=== PATIENT | female | born 1970 | race Hispanic/Latino ===

== ENCOUNTER 2018-09-26 22:00 | Observation (INO) | payer OTHER ==
[2018-09-26] MEDS ORDERED: ASPIRIN PO ONE (22:10)
--- NOTE | 2018-09-26 22:21 | Emergency Department Report ---
ED Chest Pain HPI - General Chief Complaint: Chest Pain Stated Complaint: CHEST PAIN Time Seen by Provider: 09/26/18 22:21 Source: patient, EMS Mode of arrival: Stretcher Limitations: No Limitations - History of Present Illness Initial Comments: Patient is a 48-year-old female that presents emergency room with complaints of chest pain, shortness of breath and diaphoresis. Patient states her chest pain started one hour ago. Patient was brought in by EMS. Patient states chest pain is 10 out of 10. Patient states chest pain to her left shoulder. Patient also complains of shortness of breath and diaphoresis. Patient states her symptoms are better with rest and worse with exertion. MD Complaint: chest pain -: Sudden Onset: during rest Pain Location: substernal, left chest Pain Radiation: LUE Severity: severe Severity scale (0 -10): 10 Quality: sharp Consistency: constant Improves With: rest Worsens With: exertion re: diaphoresis, dyspnea, sense of impending doom. denies: nausea, vomting Other Symptoms: denies: cough, fever, syncope, rash, acid taste in mouth, leg swelling, palpitations, burping Treatments Prior to Arrival: none Aspirin use within the Past 7 Days: (0) No - Related Data On Oral Contraceptives: No Allergies Allergy/AdvReac Type Severity Reaction Status Date / Time No Known Allergies Allergy Verified 09/26/18 22:24 Heart Score - HEART Score History: Moderately suspicious EKG: Non-specific Age: 45-65 Risk factors: No known risk factors Troponin: < normal limit HEART Score: 3 ED Review of Systems ROS: Stated complaint: CHEST PAIN Other details as noted in HPI Constitutional: denies: chills, fever Eyes: denies: eye pain, eye discharge, vision change ENT: denies: ear pain, throat pain Respiratory: shortness of breath. denies: cough, wheezing Cardiovascular: chest pain. denies: palpitations Endocrine: no symptoms reported Gastrointestinal: denies: abdominal pain, nausea, diarrhea Genitourinary: denies: urgency, dysuria, discharge Musculoskeletal: denies: back pain, joint swelling, arthralgia Skin: denies: rash, lesions Neurological: denies: headache, weakness, paresthesias Psychiatric: denies: anxiety, depression Hematological/Lymphatic: denies: easy bleeding, easy bruising ED Past Medical Hx - Past Medical History Previous Medical History?: Yes Additional medical history: Hypothyroidism - Surgical History Past Surgical History?: No - Family History Family history: no significant - Social History Smoking Status: Never Smoker Substance Use Type: None ED Physical Exam - General Limitations: No Limitations General appearance: alert, in distress - Head Head exam: Present: atraumatic, normocephalic - Eye Eye exam: Present: normal appearance - ENT ENT exam: Present: mucous membranes moist - Neck Neck exam: Present: normal inspection - Respiratory Respiratory exam: Present: normal lung sounds bilaterally. Absent: respiratory distress, wheezes - Cardiovascular Cardiovascular Exam: Present: regular rate, normal rhythm. Absent: systolic murmur, diastolic murmur, rubs, gallop - GI/Abdominal GI/Abdominal exam: Present: soft, normal bowel sounds - Rectal Rectal exam: Present: deferred - Extremities Exam Extremities exam: Present: normal inspection - Back Exam Back exam: Present: normal inspection - Neurological Exam Neurological exam: Present: alert, oriented X3 - Psychiatric Psychiatric exam: Present: normal affect, normal mood - Skin Skin exam: Present: warm, intact, normal color, diaphoretic. Absent: rash ED Course Vital Signs 09/26/18 09/26/18 09/26/18 22:07 22:09 22:16 Temperature 98.1 F Pulse Rate 77 81 Respiratory 17 18 Rate Blood Pressure 130/78 [Left] O2 Sat by Pulse 97 98 Oximetry 09/26/18 09/27/18 23:10 01:08 Temperature Pulse Rate 75 72 Respiratory 17 15 Rate Blood Pressure 120/84 136/73 [Left] O2 Sat by Pulse 98 99 Oximetry - Reevaluation(s) Reevaluation #1: Initial evaluation done. Patient found to be diaphoretic. Patient complaining of chest pain shortness of breath. 09/26/18 20:21 Patient states her chest pain is improving and her diaphoresis has resolved 09/26/18 22:50 Reevaluation #2: Patient's symptoms have improved. 09/27/18 00:24 Reevaluation #3: Patient is resting in bed comfortably 09/27/18 00:32 - Consultations Consultation #1: Hospitalist consultation for admission. Hospitalist to admit patient. 09/27/18 01:34 JEM score - Jem Score Age > 65: (0) No Aspirin use within the Past 7 Days: (0) No 3 or more CAD Risk Factors: (0) No 2 or more Angina events in past 24 hrs: (1) Yes Known CAD with more than 50% Stenosis: (0) No Elevated Cardiac Markers: (0) No ST Deviation Greater than 0.5mm: (0) No JEM Score: 1 ED Medical Decision Making - Lab Data Result diagrams: 09/26/18 22:28 09/26/18 22:28 - EKG Data -: EKG Interpreted by Me EKG shows normal: sinus rhythm, axis, intervals, QRS complexes, ST-T waves Rate: normal - Radiology Data Radiology results: report reviewed, image reviewed CHEST 1 VIEW 10:13 PM INDICATION / CLINICAL INFORMATION: Chest Pain. COMPARISON: None available. FINDINGS: SUPPORT DEVICES: None. HEART / MEDIASTINUM: The heart size and pulmonary vasculature are normal. The aorta is normal in caliber. LUNGS / PLEURA: No significant pulmonary or pleural abnormality. No pneumothorax. ADDITIONAL FINDINGS: No significant additional findings. IMPRESSION: No acute findings. - Medical Decision Making She is a 48-year-old female that presents complaints of chest pain. Patient's chest pain radiating into her left arm. Patient also complains of shortness of breath and diaphoresis. Patient admitted to the hospitalist service. Patient's initial cardiac workup negative. - Differential Diagnosis ACS. Chest pain. Critical Care Time: Yes Critical care attestation.: If time is entered above; I have spent that time in minutes in the direct care of this critically ill patient, excluding procedure time. Critical Care Time: 35 minutes ED Disposition Clinical Impression: Diaphoresis, SOB (shortness of breath) Chest pain Qualifiers: Chest pain type: unspecified Qualified Code(s): R07.9 - Chest pain, unspecified Disposition: 09 OP ADMIT IP TO THIS HOSP Is pt being admited?: Yes Does the pt Need Aspirin: No Condition: Critical Time of Disposition: 00:34
--- NOTE | 2018-09-26 22:36 | XRay Report ---
CHEST 1 VIEW 10:13 PM INDICATION / CLINICAL INFORMATION: Chest Pain. COMPARISON: None available. FINDINGS: SUPPORT DEVICES: None. HEART / MEDIASTINUM: The heart size and pulmonary vasculature are normal. The aorta is normal in [place]. LUNGS / PLEURA: No significant pulmonary or pleural abnormality. No pneumothorax. ADDITIONAL FINDINGS: No significant additional findings. IMPRESSION: No acute findings. Signer Name: Roman Quijano MD Signed: 09/26/2018 10:31 PM Workstation Name: [id number]
[2018-09-26 22:41] LABS: Basophils % (Auto) 0.7 % (0.0-1.8); Eosinophils # (Auto) 0.5 K/mm3 (0.0-0.4); Eosinophils % (Auto) 9.1 % (0.0-4.3); Hematocrit 37.6 % (30.3-42.9); Hemoglobin 12.8 gm/dl (10.1-14.3); Lymphocytes # (Auto) 1.2 K/mm3 (1.2-5.4); Lymphocytes % (Auto) 20.6 % (13.4-35.0); Mean Corpuscular HGB Conc 34 % (30-34); Mean Corpuscular Volume 88 fl (79-97); Monocytes # (Auto) 0.3 K/mm3 (0.0-0.8); Monocytes % (Auto) 5.2 % (0.0-7.3); Platelet Count 245 K/mm3 (140-440); Red Blood Count 4.28 M/mm3 (3.65-5.03); Red Cell Distribution Width 13.8 % (13.2-15.2)
[2018-09-26 23:03] LABS: BUN/Creatinine Ratio 19; Blood Urea Nitrogen 17 mg/dL (7-17); Calcium 9.6 mg/dL (8.4-10.2); Hemolysis Index 7
[2018-09-27] MEDS ORDERED: MILK OF MAGNESIA PO PRN (02:07)
[2018-09-27] MEDS ORDERED: TYLENOL PO PRN (02:07)
[2018-09-27] MEDS ORDERED: MORPHINE IV PRN (02:07)
[2018-09-27] MEDS ORDERED: SODIUM CHLORIDE FLUSH SYRINGE 10 ML IV PRN ×2 (02:07→02:18)
[2018-09-27] MEDS ORDERED: ZOFRAN IV PRN (02:07)
[2018-09-27 04:05] LABS: Basophils # (Auto) 0.1 K/mm3 (0.0-0.1); Basophils % (Auto) 1.6 % (0.0-1.8); Eosinophils # (Auto) 0.6 K/mm3 (0.0-0.4); Eosinophils % (Auto) 11.4 % (0.0-4.3); Hematocrit 36.7 % (30.3-42.9); Hemoglobin 12.5 gm/dl (10.1-14.3); Lymphocytes # (Auto) 1.6 K/mm3 (1.2-5.4); Lymphocytes % (Auto) 27.9 % (13.4-35.0); Mean Corpuscular HGB Conc 34 % (30-34); Mean Corpuscular Volume 88 fl (79-97); Monocytes # (Auto) 0.3 K/mm3 (0.0-0.8); Monocytes % (Auto) 4.6 % (0.0-7.3); Platelet Count 240 K/mm3 (140-440); Red Blood Count 4.16 M/mm3 (3.65-5.03); Red Cell Distribution Width 13.7 % (13.2-15.2)
[2018-09-27 04:20] LABS: BUN/Creatinine Ratio 19; Blood Urea Nitrogen 15 mg/dL (7-17); Calcium 9.4 mg/dL (8.4-10.2); Chol/HDL Ratio 3.87 %; HDL Cholesterol 40 mg/dL (40-59); Hemolysis Index 70; LDL Cholesterol,Direct 111 mg/dL (50-130)
--- NOTE | 2018-09-27 05:14 | History and Physical Report ---
<COY MONZON - Last Filed: 09/27/18 05:27> History of Present Illness Date of examination: 09/27/18 Date of admission: 09/27/18 02:07 Chief complaint: Chest pain History of present illness: Patient is a 48-year-old female with PMHx of hypothyroidism who presents to the ER with c/o chest pain. Pt states that the chest pain started today around 6pm, the pain is amm pressure-like pain located in the midsternal area, associated with some SOB and diaphoresis. Patient reports a severe chest pressure of an intensity of 10 out of 10. Patient states chest the pain felt like some one punch her in her chest and stay there for a while, the pain also radiates to her left shoulder. Patient admits to similar pain and family history of heart disease, she states that she usually ignore the pain, but states this time she comes to the ER because the pain was concerning and she wanted to find out what's causing it. Pt had an EKG in the ER that was normal, her first CE was normal, pt is admitted to r/o etiology of the chest pain. Past History Past Medical History: hypothyroidism Past Surgical History: No surgical history Social history: no significant social history Family history: CAD Medications and Allergies Allergies Allergy/AdvReac Type Severity Reaction Status Date / Time No Known Allergies Allergy Verified 09/26/18 22:24 Home Medications Medication Instructions Recorded Confirmed Last Taken Type Levothyroxine [Synthroid] 125 mcg PO QAM 09/27/18 09/27/18 2 Weeks Ago History ~09/13/18 Active Meds: Active Medications Acetaminophen (Tylenol) 650 mg PO Q4H PRN PRN Reason: Pain MILD(1-3)/Fever >100.5/PAGAN Atorvastatin Calcium (Lipitor) 40 mg PO QHS KENDY Magnesium Hydroxide (Milk Of Magnesia) 30 ml PO Q4H PRN PRN Reason: Constipation Morphine Sulfate (Morphine) 2 mg IV Q4H PRN PRN Reason: Pain, Moderate (4-6) Ondansetron HCl (Zofran) 4 mg IV Q8H PRN PRN Reason: Nausea And Vomiting Sodium Chloride (Sodium Chloride Flush Syringe 10 Ml) 10 ml IV BID KENDY Sodium Chloride (Sodium Chloride Flush Syringe 10 Ml) 10 ml IV PRN PRN PRN Reason: LINE FLUSH Exam - Constitutional Vitals: Temp Pulse Resp BP Pulse Ox 98.1 F 55 L 16 116/78 99 09/26/18 22:07 09/27/18 04:20 09/27/18 04:20 09/27/18 04:20 09/27/18 04:20 General appearance: Present: no acute distress - EENT Eyes: Present: EOM intact ENT: hearing intact - Neck Neck: Present: normal ROM - Respiratory Respiratory effort: normal Respiratory: bilateral: CTA - Cardiovascular Rhythm: regular Heart Sounds: Present: S1 & S2 - Extremities Extremities: no ischemia, No edema Peripheral Pulses: within normal limits - Abdominal General gastrointestinal: Present: soft, non-tender Female genitourinary: Present: deferred - Rectal Rectal Exam: deferred - Integumentary Integumentary: Present: warm, dry - Musculoskeletal Musculoskeletal: strength equal bilaterally - Psychiatric Psychiatric: cooperative - Neurologic Neurologic: moves all extremities Results - Labs CBC & Chem 7: 09/27/18 03:46 09/27/18 03:46 Labs: Laboratory Last Values WBC 5.6 K/mm3 (4.5-11.0) 09/27/18 03:46 RBC 4.16 M/mm3 (3.65-5.03) 09/27/18 03:46 Hgb 12.5 gm/dl (10.1-14.3) 09/27/18 03:46 Hct 36.7 % (30.3-42.9) 09/27/18 03:46 MCV 88 fl (79-97) 09/27/18 03:46 MCH 30 pg (28-32) 09/27/18 03:46 MCHC 34 % (30-34) 09/27/18 03:46 RDW 13.7 % (13.2-15.2) 09/27/18 03:46 Plt Count 240 K/mm3 (140-440) 09/27/18 03:46 Lymph % (Auto) 27.9 % (13.4-35.0) 09/27/18 03:46 [place] % (Auto) 4.6 % (0.0-7.3) 09/27/18 03:46 Eos % (Auto) 11.4 % (0.0-4.3) H 09/27/18 03:46 Baso % (Auto) 1.6 % (0.0-1.8) 09/27/18 03:46 Lymph # 1.6 K/mm3 (1.2-5.4) 09/27/18 03:46 [place] # 0.3 K/mm3 (0.0-0.8) 09/27/18 03:46 Eos # 0.6 K/mm3 (0.0-0.4) H 09/27/18 03:46 Baso # 0.1 K/mm3 (0.0-0.1) 09/27/18 03:46 Seg Neutrophils % 54.5 % (40.0-70.0) 09/27/18 03:46 Seg Neutrophils # 3.0 K/mm3 (1.8-7.7) 09/27/18 03:46 Sodium 137 mmol/L (137-145) 09/27/18 03:46 Potassium 4.3 mmol/L (3.6-5.0) 09/27/18 03:46 Chloride 103.0 mmol/L (98-107) 09/27/18 03:46 Carbon Dioxide 21 mmol/L (22-30) L 09/27/18 03:46 17 mmol/L 09/27/18 03:46 BUN 15 mg/dL (7-17) 09/27/18 03:46 0.8 mg/dL (0.7-1.2) 09/27/18 03:46 Estimated GFR > 60 ml/min 09/27/18 03:46 19 % 09/27/18 03:46 Glucose 106 mg/dL (65-100) H 09/27/18 03:46 Calcium 9.4 mg/dL (8.4-10.2) 09/27/18 03:46 < 0.010 ng/mL (0.00-0.029) 09/27/18 03:46 Triglycerides 105 mg/dL (2-149) 09/27/18 03:46 Cholesterol 155 mg/dL (50-199) 09/27/18 03:46 111 mg/dL (50-130) 09/27/18 03:46 40 mg/dL (40-59) 09/27/18 03:46 3.87 % 09/27/18 03:46 Assessment and Plan Assessment and plan: 1. Chest pain r/o ACS 2. Hypothyroidism 3. Obesity Plan: Pt is admited to [facility] for chest pain Continue CE q6hr x2 Cardiac diet Stress test in am Monitor VS Start Asa, statin Repeat EKG with chest pain further plan per stress test result in am Advance Directives: Yes VTE prophylaxis?: Mechanical Plan of care discussed with patient/family: Yes <TEODORO PEREZ - Last Filed: 09/27/18 06:25> History of Present Illness Date of admission: 09/27/18 02:07 Medications and Allergies Active Meds: Active Medications Acetaminophen (Tylenol) 650 mg PO Q4H PRN PRN Reason: Pain MILD(1-3)/Fever >100.5/PAGAN Atorvastatin Calcium (Lipitor) 40 mg PO QHS KENDY Magnesium Hydroxide (Milk Of Magnesia) 30 ml PO Q4H PRN PRN Reason: Constipation Morphine Sulfate (Morphine) 2 mg IV Q4H PRN PRN Reason: Pain, Moderate (4-6) Ondansetron HCl (Zofran) 4 mg IV Q8H PRN PRN Reason: Nausea And Vomiting Sodium Chloride (Sodium Chloride Flush Syringe 10 Ml) 10 ml IV BID KENDY Sodium Chloride (Sodium Chloride Flush Syringe 10 Ml) 10 ml IV PRN PRN PRN Reason: LINE FLUSH Exam - Constitutional Vitals: Temp Pulse Resp BP Pulse Ox 97.5 F L 57 L 20 115/60 98 09/27/18 05:48 09/27/18 05:47 09/27/18 05:47 09/27/18 05:47 09/27/18 05:47 Results - Labs CBC & Chem 7: 09/27/18 03:46 09/27/18 03:46 Labs: Laboratory Last Values WBC 5.6 K/mm3 (4.5-11.0) 09/27/18 03:46 RBC 4.16 M/mm3 (3.65-5.03) 09/27/18 03:46 Hgb 12.5 gm/dl (10.1-14.3) 09/27/18 03:46 Hct 36.7 % (30.3-42.9) 09/27/18 03:46 MCV 88 fl (79-97) 09/27/18 03:46 MCH 30 pg (28-32) 09/27/18 03:46 MCHC 34 % (30-34) 09/27/18 03:46 RDW 13.7 % (13.2-15.2) 09/27/18 03:46 Plt Count 240 K/mm3 (140-440) 09/27/18 03:46 Lymph % (Auto) 27.9 % (13.4-35.0) 09/27/18 03:46 [place] % (Auto) 4.6 % (0.0-7.3) 09/27/18 03:46 Eos % (Auto) 11.4 % (0.0-4.3) H 09/27/18 03:46 Baso % (Auto) 1.6 % (0.0-1.8) 09/27/18 03:46 Lymph # 1.6 K/mm3 (1.2-5.4) 09/27/18 03:46 [place] # 0.3 K/mm3 (0.0-0.8) 09/27/18 03:46 Eos # 0.6 K/mm3 (0.0-0.4) H 09/27/18 03:46 Baso # 0.1 K/mm3 (0.0-0.1) 09/27/18 03:46 Seg Neutrophils % 54.5 % (40.0-70.0) 09/27/18 03:46 Seg Neutrophils # 3.0 K/mm3 (1.8-7.7) 09/27/18 03:46 Sodium 137 mmol/L (137-145) 09/27/18 03:46 Potassium 4.3 mmol/L (3.6-5.0) 09/27/18 03:46 Chloride 103.0 mmol/L (98-107) 09/27/18 03:46 Carbon Dioxide 21 mmol/L (22-30) L 09/27/18 03:46 17 mmol/L 09/27/18 03:46 BUN 15 mg/dL (7-17) 09/27/18 03:46 0.8 mg/dL (0.7-1.2) 09/27/18 03:46 Estimated GFR > 60 ml/min 09/27/18 03:46 19 % 09/27/18 03:46 Glucose 106 mg/dL (65-100) H 09/27/18 03:46 Calcium 9.4 mg/dL (8.4-10.2) 09/27/18 03:46 < 0.010 ng/mL (0.00-0.029) 09/27/18 03:46 Triglycerides 105 mg/dL (2-149) 09/27/18 03:46 Cholesterol 155 mg/dL (50-199) 09/27/18 03:46 111 mg/dL (50-130) 09/27/18 03:46 40 mg/dL (40-59) 09/27/18 03:46 3.87 % 09/27/18 03:46 Assessment and Plan Assessment and plan: I personally discussed the patient with the BENJAMIN, Coy Monzon. I agree with the above assessment and plan.
[2018-09-27] MEDS ORDERED: LEXISCAN IV ONE ×2 (06:50→06:57)
[2018-09-27] MEDS ORDERED: SODIUM CHLORIDE FLUSH SYRINGE 10 ML IV SCH (10:00)
--- NOTE | 2018-09-27 11:01 | Discharge Summary ---
Providers - Providers Date of Admission: 09/27/18 02:07 Date of discharge: 09/27/18 Attending physician: ANATOLIY GOMEZ 09/27/18 Consult to Cardiac Rehabilitation [CONS] Routine Reason For Exam: Phase I [facility] Reason for admission: cp Condition: Critical Hospital course: Patient is a 48-year-old female with PMHx of hypothyroidism who presents to the ER with c/o chest pain. The patient described the pain as substernal pressure and quality with intermittent radiation to the left arm and shoulder. However, upon my exam and further history, the patient reports reproducible pain with palpation of the anterior chest wall with pinpoint tenderness. Patient denies any nausea vomiting or diaphoresis. Cardiac isoenzymes were negative EKG reveals no ST-T wave changes. Patient underwent stress test which found to be negative she will be discharged home. Dedicated discharge time 32 minutes. Disposition: TO HOME OR SELFCARE Time spent for discharge: 32 - Discharge Diagnoses (1) Chest pain Status: Acute Qualifiers: Chest pain type: unspecified Qualified Code(s): R07.9 - Chest pain, unspecified Core Measure Documentation - Palliative Care Palliative Care/ Comfort Measures: Not Applicable - Core Measures Any of the following diagnoses?: none Exam - Constitutional Vitals: Temp Pulse Resp BP Pulse Ox 97.4 F L 59 L 16 124/53 97 09/27/18 08:43 09/27/18 08:43 09/27/18 08:43 09/27/18 08:43 09/27/18 08:43 General appearance: Present: no acute distress, well-nourished - EENT Eyes: Present: PERRL ENT: hearing intact, clear oral mucosa - Neck Neck: Present: supple, normal ROM - Respiratory Respiratory effort: normal Respiratory: bilateral: CTA - Cardiovascular Heart Sounds: Present: S1 & S2. Absent: rub, click - Extremities Extremities: pulses symmetrical, No edema Peripheral Pulses: within normal limits - Abdominal General gastrointestinal: Present: soft, non-tender, non-distended, normal bowel sounds Female genitourinary: Present: normal - Integumentary Integumentary: Present: clear, warm, dry - Musculoskeletal Musculoskeletal: gait normal, strength equal bilaterally - Psychiatric Psychiatric: appropriate mood/affect, intact judgment & insight - Neurologic Neurologic: CNII-XII intact, moves all extremities Plan Activity: no restrictions Weight Bearing Status: Full Weight Bearing Diet: low fat, low cholesterol, low salt Follow up with: USMAN LYLE MD [Primary Care Provider] - 3-5 Days
[2018-09-27 12:19] VITALS: BP 116/52
== END 2018-09-27 16:35 | disposition home or self-care (01) ==
LOC: ED 22:00 → INTOOBSV 09-27 02:07 → 4A 09-27 02:07
PROVIDERS: ADMIT Internal Medicine; ATTEND Hospitalist
DX: R07.89 Other chest pain (principal); E03.9 Hypothyroidism, unspecified; E66.9 Obesity, unspecified
CPT/HCPCS: 36415; 71045; 78452; 80048; 80061; 84484; 85025; 93005; 93010; 93017; 99291; A9502; G0378; J2785

== ENCOUNTER 2018-10-17 11:55 | Emergency (ER) | payer OTHER ==
[2018-10-17 12:14] VITALS: BP 172/88
== END 2018-10-17 17:25 ==
LOC: ED 11:55
DX: R10.9 Unspecified abdominal pain (principal); Z53.21 Procedure and treatment not carried out due to patient leaving prior to being seen by health care provider

== ENCOUNTER 2020-07-28 05:20 | Emergency (ER) | payer SELFPAY ==
[2020-07-28 05:39] VITALS: BP 132/63
--- NOTE | 2020-07-28 06:08 | Emergency Department Report ---
ED General Adult HPI - General Chief complaint: Sore Throat Stated complaint: THROAT PAIN Source: patient, EMS Mode of arrival: Ambulatory Limitations: No Limitations - History of Present Illness Initial comments: Patient is a 50-year-old white female with a history of GERD and hypothyroidism who presents to the ED with persistent sore throat, nasal and sinus congestion for the last 4 months, worse in the last 2 weeks. Patient states that she has been taking [id number] medications with no relief. Patient states that no one else at home is had similar symptoms. Patient denies dizziness, syncope, chest pain, shortness of breath, fever, chills, nausea and vomiting, diarrhea, abdominal pain, neck pain or back pain. MD Complaint: Sore throat, nasal and sinus congestion -: Gradual, month(s) (4) Location: mouth Radiation: non-radiation Severity scale (0 -10): 5 Quality: aching Improves with: none Worsens with: none Associated Symptoms: denies other symptoms, cough. denies: confusion, chest pain, diaphoresis, fever/chills, headaches, loss of appetite, malaise, nausea/vomiting, rash, seizure, shortness of breath, syncope, other Treatments Prior to Arrival: none - Related Data Home Medications Medication Instructions Recorded Confirmed Last Taken Levothyroxine [Synthroid] 125 mcg PO QAM 09/27/18 09/27/18 2 Weeks Ago ~09/13/18 Previous Rx's Medication Instructions Recorded Last Taken Type Dicyclomine [Bentyl] 20 mg PO QID #10 tablet 10/28/18 Unknown Rx Ondansetron [Zofran Odt] 4 mg PO Q8HR #10 tab.rapdis 10/28/18 Unknown Rx Azithromycin [Zithromax Z-DEJUAN] 250 mg PO DAILY #6 tablet 07/28/20 Unknown Rx Benzonatate [Tessalon Perles] 100 mg PO Q8HR #24 capsule 07/28/20 Unknown Rx Cetirizine HCl [Zyrtec 10mg tab] 10 mg PO DAILY #30 tablet 07/28/20 Unknown Rx Famotidine [Pepcid] 20 mg PO BID #60 tablet 07/28/20 Unknown Rx Allergies Allergy/AdvReac Type Severity Reaction Status Date / Time No Known Allergies Allergy Verified 09/26/18 22:24 ED Review of Systems ROS: Stated complaint: THROAT PAIN Other details as noted in HPI Constitutional: denies: chills, fever Eyes: denies: eye pain, eye discharge, vision change ENT: throat pain, congestion. denies: ear pain Respiratory: cough. denies: shortness of breath, wheezing Cardiovascular: denies: chest pain, palpitations Endocrine: no symptoms reported Gastrointestinal: denies: abdominal pain, nausea, diarrhea Genitourinary: denies: urgency, dysuria, discharge Musculoskeletal: denies: back pain, joint swelling, arthralgia Skin: denies: rash, lesions Neurological: denies: headache, weakness, paresthesias Psychiatric: denies: anxiety, depression Hematological/Lymphatic: denies: easy bleeding, easy bruising ED Past Medical Hx - Past Medical History Previous Medical History?: Yes Additional medical history: Hypothyroidism. Acid Reflux - Surgical History Past Surgical History?: No - Social History Smoking Status: Former Smoker Substance Use Type: None - Medications Home Medications: Home Medications Medication Instructions Recorded Confirmed Last Taken Type Levothyroxine [Synthroid] 125 mcg PO QAM 09/27/18 09/27/18 2 Weeks Ago History ~09/13/18 Dicyclomine [Bentyl] 20 mg PO QID #10 tablet 10/28/18 Unknown Rx Ondansetron [Zofran Odt] 4 mg PO Q8HR #10 tab.rapdis 10/28/18 Unknown Rx Azithromycin [Zithromax Z-DEJUAN] 250 mg PO DAILY #6 tablet 07/28/20 Unknown Rx Benzonatate [Tessalon Perles] 100 mg PO Q8HR #24 capsule 07/28/20 Unknown Rx Cetirizine HCl [Zyrtec 10mg tab] 10 mg PO DAILY #30 tablet 07/28/20 Unknown Rx Famotidine [Pepcid] 20 mg PO BID #60 tablet 07/28/20 Unknown Rx ED Physical Exam - General Limitations: No Limitations General appearance: alert, in no apparent distress - Head Head exam: Present: atraumatic, normocephalic, normal inspection - Eye Eye exam: Present: normal appearance, PERRL, EOMI Pupils: Present: normal accommodation - ENT ENT exam: Present: normal exam, normal orophraynx, mucous membranes moist, TM's normal bilaterally, normal external ear exam, other (Grossly congested nasal passages) - Neck Neck exam: Present: normal inspection, full ROM. Absent: tenderness, meningismus, lymphadenopathy - Respiratory Respiratory exam: Present: normal lung sounds bilaterally. Absent: respiratory distress, wheezes, rhonchi, stridor, chest wall tenderness, accessory muscle use - Cardiovascular Cardiovascular Exam: Present: regular rate, normal rhythm, normal heart sounds. Absent: systolic murmur, diastolic murmur, rubs, gallop - GI/Abdominal GI/Abdominal exam: Present: soft, normal bowel sounds. Absent: tenderness, guarding, rebound, hyperactive bowel sounds, hypoactive bowel sounds, organomegaly - Extremities Exam Extremities exam: Present: normal inspection, full ROM, normal capillary refill - Back Exam Back exam: Present: normal inspection, full ROM. Absent: tenderness, CVA tenderness (R), CVA tenderness (L), muscle spasm, paraspinal tenderness, vertebral tenderness, rash noted - Neurological Exam Neurological exam: Present: alert, oriented X3, CN II-XII intact, normal gait, reflexes normal - Psychiatric Psychiatric exam: Present: normal affect, normal mood, anxious - Skin Skin exam: Present: warm, dry, intact, normal color. Absent: rash ED Course Vital Signs 07/28/20 05:34 Temperature 97.8 F Pulse Rate 80 Respiratory 16 Rate Blood Pressure 132/63 [Right] O2 Sat by Pulse 97 Oximetry ED Medical Decision Making - Medical Decision Making This is a 50-year-old white female with a history of GERD and hypothyroidism who presents to the ED with persistent sore throat, nasal and sinus congestion for the last 4 months, worse in the last 2 weeks. Patient states that she has been taking [id number] medications with no relief. Patient states that no one else at home is had similar symptoms. In the ED, patient is alert and oriented x3 and is not in any distress. Patient is hemodynamically stable. Patient was therefore discharged home on medications and advised to follow-up with her primary care physician in 7 to 10 days for reevaluation. Patient was advised return to the ED immediately if symptoms get worse. - Differential Diagnosis Pharyngitis; bronchitis; URI; sinusitis; seasonal allergies Critical care attestation.: If time is entered above; I have spent that time in minutes in the direct care of this critically ill patient, excluding procedure time. ED Disposition Clinical Impression: Upper respiratory infection with cough and congestion, Pharyngitis, chronic Disposition: DC- TO HOME OR SELFCARE Is pt being admited?: No Does the pt Need Aspirin: No Condition: Stable Instructions: Upper Respiratory Infection, Adult, [id number], Cough, Adult, [id number], Sore Throat, [id number] Additional Instructions: Take medication with food, drink plenty of fluids and follow-up with your primary care physician in 5 to 7 days for reevaluation. Return to the ED immediately if symptoms get worse. Prescriptions: Famotidine [Pepcid] 20 mg PO BID #60 tablet Benzonatate [Tessalon Perles] 100 mg PO Q8HR #24 capsule Azithromycin [Zithromax Z-DEJUAN] 250 mg PO DAILY #6 tablet Cetirizine HCl [Zyrtec 10mg tab] 10 mg PO DAILY #30 tablet Referrals: [facility] [Provider Group] - 3-5 Days Time of Disposition: 06:08 Print Language: ALGERIAN
--- NOTE | 2020-07-28 15:29 | History and Physical Report ---
Medications and Allergies Allergies Allergy/AdvReac Type Severity Reaction Status Date / Time No Known Allergies Allergy Verified 09/26/18 22:24 Home Medications Medication Instructions Recorded Confirmed Last Taken Type Levothyroxine [Synthroid] 125 mcg PO QAM 09/27/18 09/27/18 2 Weeks Ago History ~09/13/18 Dicyclomine [Bentyl] 20 mg PO QID #10 tablet 10/28/18 Unknown Rx Ondansetron [Zofran Odt] 4 mg PO Q8HR #10 tab.rapdis 10/28/18 Unknown Rx Azithromycin [Zithromax Z-DEJUAN] 250 mg PO DAILY #6 tablet 07/28/20 Unknown Rx Benzonatate [Tessalon Perles] 100 mg PO Q8HR #24 capsule 07/28/20 Unknown Rx Cetirizine HCl [Zyrtec 10mg tab] 10 mg PO DAILY #30 tablet 07/28/20 Unknown Rx Famotidine [Pepcid] 20 mg PO BID #60 tablet 07/28/20 Unknown Rx Exam - Constitutional Vitals: Temp Pulse Resp BP Pulse Ox 97.8 F 73 17 132/63 99 07/28/20 05:34 07/28/20 06:30 07/28/20 06:30 07/28/20 05:34 07/28/20 06:30
== END 2020-07-28 06:30 | disposition home or self-care (01) ==
LOC: ED 05:20
DX: J06.9 Acute upper respiratory infection, unspecified (principal); J02.9 Acute pharyngitis, unspecified; R05 Cough; R09.89 Other specified symptoms and signs involving the circulatory and respiratory systems; E03.9 Hypothyroidism, unspecified; K21.9 Gastro-esophageal reflux disease without esophagitis; Z87.891 Personal history of nicotine dependence; Z79.899 Other long term (current) drug therapy